=== PATIENT | female | born 1995 | race Caucasian/White ===

== ENCOUNTER 2022-11-10 12:19 | Emergency (ER) | payer SELFPAY ==
--- NOTE | 2022-11-10 12:30 | ED GU-Female ---
General Stated Complaint: CRAMPING DURING History of Present Illness Date Seen by Provider: Nov 10, 2022 Time Seen by Provider: 12:30 Initial Comments 27-year-old female presents with lower abdominal cramping. Patient thinks she believes she is about 10 weeks . She had an ultrasound that showed a sac with fluid but no heartbeat in September. Patient denies any vaginal bleeding. Patient's not sure if she is actually . Patient reports that she has had quite a bit of fatigue and cramping today. She is here from [place] visiting. Allergies and Home Medications Allergies Coded Allergies: Penicillins (Verified Allergy, Unknown, 11/10/22) Patient Home Medication List Home Medication List Reviewed: Yes Cephalexin (Cephalexin) 500 Mg Tablet, 500 MG PO QID Prescribed by: BRINA CISNEROS on 11/10/22 5296 Review of Systems Review of Systems Constitutional: No chills, No fever EENTM: no symptoms reported Cardiovascular: no symptoms reported Gastrointestinal: see HPI Genitourinary: see HPI Musculoskeletal: no symptoms reported Skin: no symptoms reported Psychiatric/Neurological: No Symptoms Reported Physical Exam Vital Signs Vital Signs - First Documented 11/10/22 12:24 Temp 36.9 Pulse 97 Resp 18 B/P (MAP) 130/72 (91) Pulse Ox 99 O2 Delivery Room Air Capillary Refill : Height, Weight, BMI Height: '" Weight: lbs. oz. kg; BMI Method: General Appearance: WD/WN Cardiovascular: normal peripheral pulses, regular rate, rhythm Respiratory: lungs clear Gastrointestinal: soft, tenderness (Mild suprapubic) Extremities: non-tender, normal inspection Neurologic/Psychiatric: alert, normal mood/affect, oriented x 3 Skin: normal color, warm/dry Progress/Results/Core Measures Suspected Sepsis SIRS Temperature: Pulse: Respiratory Rate: Laboratory Tests 11/10/22 12:48: White Blood Count 8.3 Blood Pressure / Mean: Laboratory Tests 11/10/22 12:48: Creatinine 0.56L, Platelet Count 359, Total Bilirubin 0.6 Results/Orders Lab Results Laboratory Tests Test 11/10/22 12:30 11/10/22 12:48 Range/Units Urine Color YELLOW Urine Clarity TURBID Urine pH 7.5 5-9 Urine Specific [place] 1.020 1.016-1.022 Urine Protein TRACE H NEGATIVE Urine Glucose (UA) NEGATIVE NEGATIVE Urine Ketones 1+ H NEGATIVE Urine Nitrite NEGATIVE NEGATIVE Urine Bilirubin NEGATIVE NEGATIVE Urine Urobilinogen 0.2 < = 1.0 MG/DL Urine Leukocyte Esterase 1+ H NEGATIVE Urine RBC (Auto) NEGATIVE NEGATIVE Urine RBC NONE /HPF Urine WBC 5-10 H /HPF Urine Squamous Epithelial Cells >50 H /HPF Urine Crystals PRESENT H /LPF Urine Amorphous Sediment LARGE ROSY PHOSPHATE H /LPF Urine Bacteria MODERATE H /HPF Urine Casts NONE /LPF Urine Mucus MODERATE H /LPF Urine Culture Indicated YES White Blood Count 8.3 4.3-11.0 10^3/uL Red Blood Count 3.97 3.80-5.11 10^6/uL Hemoglobin 12.7 11.5-16.0 g/dL Hematocrit 35 35-52 % Mean Corpuscular Volume 87 80-99 fL Mean Corpuscular Hemoglobin 32 25-34 pg Mean Corpuscular Hemoglobin Concent 37 H 32-36 g/dL Red Cell Distribution Width 12.1 10.0-14.5 % Platelet Count 359 130-400 10^3/uL Mean Platelet Volume 10.1 9.0-12.2 fL Immature Granulocyte % (Auto) 0 % Neutrophils (%) (Auto) 64 42-75 % Lymphocytes (%) (Auto) 29 12-44 % Monocytes (%) (Auto) 6 0-12 % Eosinophils (%) (Auto) 1 0-10 % Basophils (%) (Auto) 1 0-10 % Neutrophils # (Auto) 5.3 1.8-7.8 10^3/uL Lymphocytes # (Auto) 2.4 1.0-4.0 10^3/uL Monocytes # (Auto) 0.5 0.0-1.0 10^3/uL Eosinophils # (Auto) 0.1 0.0-0.3 10^3/uL Basophils # (Auto) 0.0 0.0-0.1 10^3/uL Immature Granulocyte # (Auto) 0.0 0.0-0.1 10^3/uL Sodium Level 136 135-145 MMOL/L Potassium Level 3.5 L 3.6-5.0 MMOL/L Chloride Level 103 98-107 MMOL/L Carbon Dioxide Level 22 21-32 MMOL/L Anion Gap 11 5-14 MMOL/L Blood Urea Nitrogen 5 L 7-18 MG/DL Creatinine 0.56 L 0.60-1.30 MG/DL Estimat Glomerular Filtration Rate 127 BUN/Creatinine Ratio 9 Glucose Level 103 70-105 MG/DL Calcium Level 9.3 8.5-10.1 MG/DL Corrected Calcium 9.2 8.5-10.1 MG/DL Total Bilirubin 0.6 0.1-1.0 MG/DL Aspartate Amino Transf (AST/SGOT) 19 5-34 U/L Alanine Aminotransferase (ALT/SGPT) 20 0-55 U/L Alkaline Phosphatase 53 40-136 U/L Total Protein 6.8 6.4-8.2 GM/DL Albumin 4.1 3.2-4.5 GM/DL Human Chorionic Gonadotropin, Quant 68830 H <5 MIU/ML My Orders Orders - CISNEROS,BRINA L DO Ua Culture If Indicated (11/10/22 12:34) Lactated Ringers (Lr 1000 Ml Iv Solution (11/10/22 12:34) Cbc With Automated Diff (11/10/22 12:45) Comprehensive Metabolic Panel (11/10/22 12:45) Hcg,Quantitative (11/10/22 12:45) Urine Culture (11/10/22 12:30) Us Ob Single Fetus<14 [id number] (11/10/22 13:35) Vital Signs/I&O 11/10/22 11/10/22 12:24 14:01 Temp 36.9 36.9 Pulse 97 84 Resp 18 18 B/P (MAP) 130/72 (91) 128/68 Pulse Ox 99 99 O2 Delivery Room Air Room Air Capillary Refill : Progress Note : Progress Note Patient's ultrasound shows a live intrauterine in the ninth week. Patient has a questionable urine. Due to her being we will treat her with Keflex. Patient stable and discharged home. Her labs were reviewed and showed no other acute abnormality. Diagnostic Imaging Diagonstic Imaging: Ultrasound Comments Date of Exam:11/10/22 US OB SINGLE FETUS<14 [id number] EXAM: First Trimester Ultrasound INDICATIONS: Age by LMP is unknown. TECHNIQUE: The pelvis was scanned using transabdominal technique. COMPARISON: None. FINDINGS: Endovaginal sonography demonstrates a single living intrauterine gestation. A normal appearing secondary yolk sac is not identified. Normal round gestational sac. No evidence of subchorionic hemorrhage. The appearance of the embryo and gestation is normal for age. heart rate measures 150 bpm. Both ovaries were identified and appear normal. The left measures 2.1 x 2.4 x 1.3 cm, and the right 4.3 x 4.9 x 2.7 cm. No abnormal adnexal masses. No free fluid. biometry: Mean sac diameter 31 mm: 8 weeks, 3 days. [place] rump length 27 cm: 9 weeks, 4 days. IMPRESSION: Single living intrauterine gestation with estimated gestational age by CRL of 9 weeks 4 days. Reviewed: Reviewed/Discussed Departure Impression Primary Impression: 9 weeks gestation of Additional Impression: UTI in Qualified Codes: O23.41 - Unspecified infection of urinary tract in , first trimester Disposition: 01 HOME, SELF-CARE Condition: Stable Departure-Patient Inst. Referrals: NO,LOCAL PHYSICIAN (PCP/Family) Primary Care Physician Patient Instructions: Urinary Tract Infections in , - The Third Month Add. Discharge Instructions: Drink plenty of fluids. Please continue taking vitamins. Follow-up with your aesthetician next week for recheck of your symptoms Scripts Cephalexin (Cephalexin) 500 Mg Tablet 500 MG PO QID, #20 TAB 0 Refills Prov: BRINA CISNEROS DO 11/10/22 BRINA CISNEROS DO Nov 10, 2022 12:30
[2022-11-10] MEDS ORDERED: LACTATED RINGERS 1,000 ML IV STA (12:34)
[2022-11-10 12:43] LABS: BILIRUBIN,URINE NEGATIVE (NEGATIVE); CLARITY,URINE TURBID; COLOR,URINE YELLOW; GLUCOSE, URINE (UA) NEGATIVE (NEGATIVE); KETONES,URINE 1+ (NEGATIVE); LEUKOCYTE ESTERASE ,URINE 1+ (NEGATIVE); NITRITE,URINE NEGATIVE (NEGATIVE); PH,URINE 7.5 (5-9); PROTEIN,URINE TRACE (NEGATIVE)
[2022-11-10 12:55] LABS: BASOPHILS % (AUTO) 1 % (0-10); EOSINOPHILS # (AUTO) 0.1 10^3/uL (0.0-0.3); EOSINOPHILS % (AUTO) 1 % (0-10); HEMATOCRIT 35 % (35-52); HEMOGLOBIN 12.7 g/dL (11.5-16.0); LYMPHOCYTES # (AUTO) 2.4 10^3/uL (1.0-4.0); LYMPHOCYTES % (AUTO) 29 % (12-44); MEAN CORPUSCULAR HEMOGLOBIN 32 pg (25-34); MEAN CORPUSCULAR HGB CONC 37 g/dL (32-36); MEAN CORPUSCULAR VOLUME 87 fL (80-99); MEAN PLATELET VOLUME 10.1 fL (9.0-12.2); MONOCYTES # (AUTO) 0.5 10^3/uL (0.0-1.0); MONOCYTES % (AUTO) 6 % (0-12); NEUTROPHILS # (AUTO) 5.3 10^3/uL (1.8-7.8); NEUTROPHILS % (AUTO) 64 % (42-75); PLATELET COUNT 359 10^3/uL (130-400); WHITE BLOOD COUNT 8.3 10^3/uL (4.3-11.0)
[2022-11-10 13:06] LABS: AMORPHOUS SEDIMENT,UR LARGE AMOR PHOSPHATE /LPF; BACTERIA,URINE MODERATE /HPF; SQUAMOUS EPITHELIAL CELL,UR >50 /HPF
[2022-11-10 13:29] LABS: ALBUMIN 4.1 GM/DL (3.2-4.5); BILIRUBIN,TOTAL 0.6 MG/DL (0.1-1.0); CALCIUM 9.3 MG/DL (8.5-10.1); CREATININE SERUM 0.56 MG/DL (0.60-1.30); POTASSIUM 3.5 MMOL/L (3.6-5.0); TOTAL PROTEIN 6.8 GM/DL (6.4-8.2)
[2022-11-10 14:01] VITALS: BP 128/68
[2022-11-10] MEDS ORDERED: CEPH500T PO (14:09)
--- NOTE | 2022-11-10 14:11 | Diagnostic Imaging Report ---
EXAM: First Trimester Ultrasound INDICATIONS: Age by LMP is unknown. TECHNIQUE: The pelvis was scanned using transabdominal technique. COMPARISON: None. FINDINGS: Endovaginal sonography demonstrates a single living intrauterine gestation. A normal appearing secondary yolk sac is not identified. Normal round gestational sac. No evidence of subchorionic hemorrhage. The appearance of the embryo and gestation is normal for age. heart rate measures 150 bpm. Both ovaries were identified and appear normal. The left measures 2.1 x 2.4 x 1.3 cm, and the right 4.3 x 4.9 x 2.7 cm. No abnormal adnexal masses. No free fluid. biometry: Mean sac diameter 31 mm: 8 weeks, 3 days. [place] rump length 27 cm: 9 weeks, 4 days. IMPRESSION: Single living intrauterine gestation with estimated gestational age by CRL of 9 weeks 4 days. Dictated by: Dictated on workstation # [id number]
== END 2022-11-10 14:10 | disposition home or self-care (01) ==
LOC: ER FS 12:21
DX: O23.41 Unspecified infection of urinary tract in pregnancy, first trimester (principal); N39.0 Urinary tract infection, site not specified; Z88.0 Allergy status to penicillin; Z28.310 Unvaccinated for COVID-19; Z3A.09 9 weeks gestation of pregnancy
CPT/HCPCS: 36415; 76801; 80053; 81000; 84702; 85025; 87088